=== PATIENT | male | born 1930 | race Hispanic/Latino ===

== ENCOUNTER 2020-01-20 09:57 | Inpatient (IN) | payer MEDICARE, OTHER ==
[~2020-01-20] VITALS: Ht 167.6 cm; Wt 41.4 kg
--- NOTE | 2020-01-20 11:30 | Emergency Department Note ---
History of Present Illnes History of Present Illness Chief Complaint: General Medicine Complaints History of Present Illness This is a 89 year old male arrives [facility] the ED [facility] due to hypoxia. Patient given limited history admits to cough and states he feels weak. Chief Complaint Comment MED RESORT CALLED RESPIRATORY DISTRSS. SATS ON NRB AT 6 LPM AT [facility] WITH SATS 80'S. PT AWAKE AND UPRIGHT END TITLE 34. SATS NOW 89% ON NRB AT 15 LPM. NEGATIVE COVID ON JANUARY 07 AT [facility]. PT DANISH ONLY. FINGERS NOTED CYANOTIC AT TRIAGE TIME. FEET RED/FLUSHED. Historian: Patient, Operations Research Scientist/EMS Arrival Mode: [facility] Treatment PURCHASER AUTOMOTIVE PARTS: IV, O2, See EMS Report Additional Treatment PURCHASER AUTOMOTIVE PARTS: MED RESORT/20G RAC Content Editor Required: No Onset (how long ago): hour(s) Radiation: Reports non-radiation Severity: mild Onset quality: unable to specify Timing of current episode: unable to specify Progression: unable to specify Past Medical/Family History Physician Review I have reviewed the patient's past medical and family history. Any updates have been documented here. Past Medical History Recent Fever: No Clinical Suspicion of Infectio: No New/Unexplained Change in Ment: No Past Medical History: Hypertension, [place], Hypothyroidism, CAD, Other Mental Illness, Hyperlipedemia Other Medical History: PARKINSON'S DISEASE DEMENTIA Review of Systems ROS Narrative Unable to obtain ROS: altered mental status Review of Systems Constitutional: Reports as per HPI EENTM: Reports no symptoms Cardiovascular: Reports no symptoms Respiratory: Reports as per HPI, Reports cough Gastrointestinal: Reports no symptoms Genitourinary: Reports no symptoms Musculoskeletal: Reports no symptoms Integumentary: Reports no symptoms Neurological: Reports no symptoms Psychological: Reports no symptoms Endocrine: Reports no symptoms Hematological/Lymphatic: Reports no symptoms Physical Exam Related Data Allergies: Coded Allergies: No Known Allergies (Unverified , 01/20/20) Triage Vital Signs Vital Signs Date Time Temp Pulse Resp B/P (MAP) Pulse Ox O2 Delivery O2 Flow Rate FiO2 01/20/20 09:58 98.0 74 22 74/50 89 Vital signs reviewed: Yes Physical Exam CONSTITUTIONAL Constitutional: Present well-developed, Present cachectic, Present ill appearing HENT HENT: Present normocephalic, Present atraumatic, Present mucosae dry, Present nose normal HENT L/R: Present left ext ear normal, Present right ext ear normal EYES Eyes: Reports PERRL, Reports conjunctivae normal NECK Neck: Present ROM normal PULMONARY Pulmonary: Present effort normal, Present respiratory distress CARDIOVASCULAR Cardiovascular: Present regular rhythm, Present heart sounds normal, Present capillary refill normal, Present normal rate GASTROINTESTINAL Abdominal: Present soft, Present nontender, Present bowel sounds normal GENITOURINARY Genitourinary: Present exam deferred SKIN Skin: Present warm, Present dry MUSCULOSKELETAL Musculoskeletal: Present ROM normal NEUROLOGICAL Neurological: Present no gross motor or sensory deficits PSYCHOLOGICAL Psychological: Absent mood/affect normal, Absent judgement normal Results Laboratory Lab results reviewed: Yes Imaging Imaging results reviewed: Yes Procedures 12 Lead ECG Interpretation ECG Interpretation : ECG: ECG 1 Prior ECG tracings: reviewed Rhythm: sinus rhythm Rate: normal QRS axis: right ST segments normal: Yes T wave inversion: V3, V4, V5, V6 Clinical Impression: abnormal ECG Critical Care Time Total Critical Care Time (min): 40 Critcal care necessary due to: metabolic failure Comments Patient with marked electrolyte abnormalities, elevated cardiac markers, concerns or multiorgan dysfunction secondary to severe dehydration and possible acute coronary syndrome Assessment & Plan Medical Decision Making MDM 89-year-old ill-appearing related to the ED after being hypoxic at the [facility]. Patient's oxygen saturation 89% in the ED, there was concerns of possible [place] 19 related illness. Patient's labwork concerning for marked hypernatremia, elevated troponin, the preceding her likely due to severe dehydration versus any infectious process. There is no concerns for any infectious process at time of admission. Patient had no leukocytosis. Patient had no fever, the initial blood pressure on arrival was slightly low due to a volume depletion not related to an infectious source. Patient was given volume resuscitation, blood pressure improved, slow reversal of hypernatremia is necessary given this is likely a chronic condition for the patient. Case discussed with hospitalist accepted admission, further consultation to be done by primary hospitalist team. Assessment & Plan Final Impression: (1) NSTEMI (non-ST elevated myocardial infarction) (2) Hypernatremia Depart Disposition: HOME, SELF-CARE Last Vital Signs Date Time Temp Pulse Resp B/P (MAP) Pulse Ox O2 Delivery O2 Flow Rate FiO2 01/20/20 09:58 98.0 74 22 74/50 89 Home Meds Reported Medications Mirtazapine (MIRTAZAPINE) 15 Mg Tab, 15 MG PO HS, TAB 01/20/20 Midodrine Hcl (MIDODRINE HCL) 5 Mg Tablet, 5 MG PO Q8H PRN for LOW BLOOD PRESSURE, TAB 01/20/20 Metoprolol Tartrate (METOPROLOL TARTRATE) 25 Mg Tablet, 12.5 MG PO BID, TAB 01/20/20 Levothyroxine Sodium (LEVOTHYROXINE SODIUM) 50 Mcg Tablet, 50 MCG PO DAILY, #30 TAB 01/20/20 Ipratropium/Albuterol Sulfate (COMBIVENT RESPIMAT INHAL SPRAY) 4 Gm Aer.w.adap, 4 GM IH Q4HR PRN for SHORTNESS OF BREATH, INH 01/20/20 Fenofibrate Nanocrystallized (FENOFIBRATE) 145 Mg Tablet, DAILY 01/20/20 Donepezil Hcl (ARICEPT) 5 Mg Tablet, 10 MG PO HS, #60 TAB 01/20/20 Divalproex Sodium (DEPAKOTE SPRINKLE) 125 Mg Cap.sprink, BID 01/20/20 Carbidopa/Levodopa (CARBIDOPA-LEVODOPA 10-100 TAB) 1 Each Tablet, 1 EACH PO BID, TAB 01/20/20 Atorvastatin Calcium (ATORVASTATIN CALCIUM) 10 Mg Tablet, 10 MG PO 2100, #30 TAB 01/20/20 Aspirin (ASPIR 81) 81 Mg Tablet., DAILY 01/20/20 EZRA AARON, DO Jan 20, 2020 11:30
[2020-01-20 11:31] LABS: BASOPHILS % 0.2 % (0.0-1.0); EOSINOPHILS % 0.2 % (0.0-6.0); HEMOGLOBIN 14.8 g/dL (14.0-18.0); LYMPHOCYTES # (AUTO) 1.2 (1.0-3.2); LYMPHOCYTES % 22.4 % (18.0-39.1); MEAN CORPUSCULAR HEMOGLOBIN 28.9 pg (28-32); MEAN CORPUSCULAR HGB CONC 30.2 g/dL (31-35); MEAN CORPUSCULAR VOLUME 95.7 fL (81-99); MONOCYTES # (AUTO) 0.4 (0.2-0.8); MONOCYTES % 7.5 % (4.4-11.3); NEUTROPHILS # (AUTO) 3.6 (2.1-6.9); NEUTROPHILS % 69.3 % (38.7-80.0); PLATELET COUNT 169 x10e3/uL (140-360); RED BLOOD COUNT 5.12 x10e6/uL (4.3-5.7); RED CELL DISTRIBUTION WIDTH 13.5 % (11.7-14.4)
[2020-01-20 11:52] LABS: CREATINE KINASE MB 14.9 ng/mL (0-5.0)
[2020-01-20 11:53] LABS: ALBUMIN 3.6 g/dL (3.5-5.0); ALBUMIN/GLOBULIN RATIO 0.8 (0.8-2.0); ANION GAP 16.9 mmol/L (8-16); CREATININE, SERUM 3.6 mg/dL (0.72-1.25); POTASSIUM 3.9 mmol/L (3.5-5.1)
--- NOTE | 2020-01-20 12:00 | NUR ---
PATIENT NRB REMOVED. PULSE OX PLACED ON EAR. O2 SAT 100%
--- NOTE | 2020-01-20 12:58 | Diagnostic Imaging Report ---
EXAMINATION: CHEST SINGLE (PORTABLE) INDICATION: ^Y ^COVID PUI. COMPARISON: None FINDINGS: AP view TUBES and LINES: None. LUNGS: Right gastric sulcus is excluded from the image. Lungs are well inflated. There is no evidence of pneumonia or pulmonary edema. PLEURA: No pleural effusion or pneumothorax. HEART AND MEDIASTINUM: The cardiomediastinal silhouette is unremarkable. BONES AND SOFT TISSUES: No acute osseous lesion. Soft tissues are unremarkable. UPPER ABDOMEN: No free air under the diaphragm. IMPRESSION: No acute thoracic abnormality. Signed by: Maxi Swan MD on 01/20/2020 12:55 PM
[2020-01-20] MEDS ORDERED: SODIUM CHLORIDE 0.9% 1000ML 1,000 ML IV STA (14:37)
[2020-01-20] MEDS ORDERED: SODIUM CHLORIDE 0.9% 1000ML 1,000 ML ONE (14:47)
--- NOTE | 2020-01-20 15:00 | NUR ---
QUILT MAKER AT BEDSIDE FOR REPEAT TROP
--- NOTE | 2020-01-20 15:42 | NUR ---
DR. AARON AWARE OF TROP 2ND RESULT. WENT FROM 2.65 TO 2.29 NO FURTHER TREATMENT AT THIS TIME
[2020-01-20] MEDS ORDERED: SODIUM CHLORIDE 0.45% 1,000 ML IV ONE (18:00)
[2020-01-20] MEDS ORDERED: HYDRALAZINE HCL 20 MG/ML VIAL IV PRN (18:15)
[2020-01-20] MEDS ORDERED: ACETAMINOPHEN 325 MG TAB PO PRN (18:15)
[2020-01-20] MEDS ORDERED: ONDANSETRON HCL INJ 2MG/ML 2ML 2 MG/ML VIAL IV PRN (18:15)
--- NOTE | 2020-01-20 18:16 | NUR ---
Patient's daughter Rubi Hernandez [phone]
[2020-01-20 20:00] VITALS: BP 128/70
[2020-01-20 21:00] VITALS: BP 128/70
[2020-01-20] MEDS ORDERED: MIRTAZAPINE15 MG PO (22:08)
[2020-01-20] MEDS ORDERED: MIDODRINE HCL5 MG PO (22:08)
[2020-01-20] MEDS ORDERED: DEPAKOTE SPRIN125 MG (22:08)
[2020-01-20] MEDS ORDERED: LEVOTHYROXINE50 MCG PO (22:08)
[2020-01-20] MEDS ORDERED: COMBIVENT RESPIM4 GM IH (22:08)
[2020-01-20] MEDS ORDERED: FENOFIBRATE145 MG (22:08)
[2020-01-20] MEDS ORDERED: ATORVASTATIN CA10 MG PO (22:08)
[2020-01-20] MEDS ORDERED: ASPIR 8181 MG (22:08)
[2020-01-20] MEDS ORDERED: ARICEPT5 MG PO (22:08)
[2020-01-20] MEDS ORDERED: METOPROLOL TART25 MG PO (22:08)
[2020-01-20] MEDS ORDERED: CARBIDOPA-LEVO1 EACH PO (22:08)
[2020-01-20] MEDS ORDERED: DIVALPROEX SODIUM 125 MG TABDR...ER PO SCH (22:44)
[2020-01-20] MEDS: MIRTAZAPINE 15 MG TAB PO SCH (23:00)
[2020-01-20] MEDS: FAMOTIDINE 20 MG/2 ML VIAL IV SCH (23:00)
[2020-01-20] MEDS: DONEPEZIL HCL 5 MG TAB PO SCH (23:00)
[2020-01-21] VITALS (8 sets, daily range): BP systolic 97–131; BP diastolic 62–70
[2020-01-21 00:39] LABS: ALBUMIN 3.5 g/dL (3.5-5.0); ALBUMIN/GLOBULIN RATIO 0.9 (0.8-2.0); ANION GAP 15.9 mmol/L (8-16); CALCIUM 9.3 mg/dL (8.4-10.2); CREATININE, SERUM 3.06 mg/dL (0.72-1.25); POTASSIUM 3.9 mmol/L (3.5-5.1)
[2020-01-21] MEDS ORDERED: DEXTROSE 5% 1,000 ML IV SCH (01:00)
[2020-01-21 06:48] LABS: EOSINOPHILS % 0.2 % (0.0-6.0); HEMATOCRIT 45.1 % (38.2-49.6); HEMOGLOBIN 13.4 g/dL (14.0-18.0); LYMPHOCYTES # (AUTO) 0.9 (1.0-3.2); LYMPHOCYTES % 16.9 % (18.0-39.1); MEAN CORPUSCULAR HEMOGLOBIN 28.9 pg (28-32); MEAN CORPUSCULAR HGB CONC 29.7 g/dL (31-35); MEAN CORPUSCULAR VOLUME 97.4 fL (81-99); MONOCYTES # (AUTO) 0.3 (0.2-0.8); MONOCYTES % 5.8 % (4.4-11.3); NEUTROPHILS # (AUTO) 4.3 (2.1-6.9); NEUTROPHILS % 76.6 % (38.7-80.0); PLATELET COUNT 166 x10e3/uL (140-360); RED BLOOD COUNT 4.63 x10e6/uL (4.3-5.7); RED CELL DISTRIBUTION WIDTH 13.6 % (11.7-14.4)
[2020-01-21 07:26] LABS: ANION GAP 16.7 mmol/L (8-16); CALCIUM 8.9 mg/dL (8.4-10.2); CREATININE, SERUM 2.79 mg/dL (0.72-1.25); POTASSIUM 3.7 mmol/L (3.5-5.1)
[2020-01-21] MEDS: FAMOTIDINE 20 MG/2 ML VIAL IV SCH ×2 (08:55→20:58)
[2020-01-21] MEDS: DONEPEZIL HCL 5 MG TAB PO SCH ×2 (09:00→21:57)
[2020-01-21] MEDS: DIVALPROEX SODIUM 125 MG TABDR...ER PO SCH ×3 (09:00→21:30)
[2020-01-21] MEDS: FENOFIBRATE 145 MG TAB PO SCH (09:00)
[2020-01-21] MEDS: METOPROLOL TARTRATE 25 MG TAB PO SCH ×2 (09:00→16:48)
[2020-01-21] MEDS: LEVOTHYROXINE SODIUM 50 MCG TAB PO SCH (09:00)
[2020-01-21] MEDS: CARBIDOPA/LEVODOPA 10/100 TAB PO SCH ×2 (10:30→16:48)
--- NOTE | 2020-01-21 10:50 | Diagnostic Imaging Report ---
EXAM: CT Chest WITHOUT intravenous contrast 01/21/2020 10:00 AM INDICATION: Hypoxia COMPARISON: Chest radiograph 01/20/2020 TECHNIQUE: Chest was scanned utilizing a multidetector helical scanner from the lung apex through the level of the adrenal glands without administration of IV contrast. Coronal and sagittal reformations were obtained. Routine protocol was performed. IV CONTRAST: None RADIATION DOSE: Total DLP: 348 mGy*cm. Dose modulation, iterative reconstruction, and/or weight based adjustment of the mA/kV was utilized to reduce the radiation dose to as low as reasonably achievable. COMPLICATIONS: None FINDINGS: LINES/ TUBES: None. LUNGS AND AIRWAYS: The central airways are patent. 6 mm right upper lobe part solid part groundglass nodules. 6 mm left lower lobe part solid part groundglass nodule. No focal consolidation. No pulmonary edema. PLEURA: The pleural spaces are clear. HEART AND MEDIASTINUM: The thyroid gland is normal. No supraclavicular, axillary, mediastinal, or hilar lymphadenopathy. The heart is not enlarged. No pericardial effusion. Scattered atherosclerotic calcifications involve the aorta, coronary arteries, and proximal great vessels. The ascending aorta is ectatic, measuring up to 4.1 cm. UPPER ABDOMEN: Partially calcified splenic artery aneurysm. No acute findings in the upper abdomen. BONES: T11 compression fracture has a sclerotic appearance and is likely chronic. SOFT TISSUES: Unremarkable. IMPRESSION: No focal pneumonia or pulmonary edema. 6 mm part solid part groundglass nodules in the right upper and left lower lobes. Recommend follow-up chest CT in 12 months to assess for stability. Ectatic ascending thoracic aorta. Signed by: Bozena Bustillo MD on 01/21/2020 10:46 AM
[2020-01-21] MEDS: DEXTROSE 5% 1,000 ML IV SCH ×2 (10:59→16:58)
[2020-01-21] MEDS: MIDODRINE HCL 5 MG TABLET PO SCH ×2 (12:00→16:00)
--- NOTE | 2020-01-21 20:05 | NUR ---
O2 APPLIED VIA NC
--- NOTE | 2020-01-21 20:28 | NUR ---
IV TO L FA D/C CATHETER TIP INTACT. NEW IV TO L AC 20G STARTED. CDI DRESSING APPLIED. TOLERATED WELL.
[2020-01-21] MEDS: MIRTAZAPINE 15 MG TAB PO SCH (20:58)
[2020-01-21] MEDS: ATORVASTATIN 10 MG TAB PO SCH (20:58)
[2020-01-21] MEDS ORDERED: MIRTAZAPINE 15 MG TAB PO SCH (21:00)
[2020-01-21] MEDS ORDERED: DONEPEZIL HCL 5 MG TAB PO SCH (21:00)
--- NOTE | 2020-01-21 21:10 | NUR ---
SPOKE TO MD BHAT. NEW ORDERS RECEIVED.
--- NOTE | 2020-01-21 21:19 | NUR ---
SPOKE TO MD Aidee IGLESIAS REGARDING CONSULT. AWARE O2 SAT 76% AND 3L NC. NO NEW ORDERS RECEIVED.
[2020-01-21 22:11] LABS: ABG HCO3 27 mmol/L (22-26); ABG PCO2 41 mmHg (35-45); ABG PH 7.42 (7.35-7.45); ABG PO2 208 mmHg (80-105)
--- NOTE | 2020-01-21 22:30 | NUR ---
ALT PRESSURE MACHINE APPLIED
--- NOTE | 2020-01-21 22:44 | Consultation ---
DATE OF CONSULTATION: Pulmonary and Critical Care Consultation CHIEF COMPLAINT: Confusion, hyponatremia, and decreasing oxygen saturation. HISTORY OF PRESENT ILLNESS: The patient is an 89-year-old man. He has a history of Parkinson disease as well as hypothyroidism and prior cardiac disease. He came to the hospital with worsening confusion and obtundation. He was found to have a sodium of 172. He also had an elevated creatinine of 3.06. He has been started on hydration and is receiving some free water. This evening, he had some decrease in his oxygen saturations and had to be placed on nasal cannula. He does not report any fevers. There is no chest pain. He denies any cough. PAST SURGICAL HISTORY: Status post fracture of the femur and acetabulum that required operative repair. PAST MEDICAL HISTORY: 1. Coronary artery disease with prior myocardial infarction. 2. Parkinson disease. 3. Hypothyroidism. 4. Hypertension. SOCIAL HISTORY: The patient stays at a nursing facility. He is not an active smoker or drinker. FAMILY HISTORY: Family history is noncontributory. ALLERGIES: NO KNOWN DRUG ALLERGIES. REVIEW OF SYSTEMS: There is no history of fever. He has no headache. There is confusion. He has no neck pain. He has no chest pain. He did have some low oxygen saturations, but does not complain of dyspnea or cough. He has no abdominal pain. There is no nausea or vomiting. PHYSICAL EXAMINATION: VITAL SIGNS: The blood pressure is 119/62, saturation is now 92% on nasal cannula. His pulse is 55-60. His respiratory rate is 16. HEENT: Shows no facial swelling or erythema. CARDIAC: Reveals irregular rhythm with a normal S1 and S2. LUNGS: Auscultation of lungs reveals decreased breath sounds at the bases. There is no wheezing. ABDOMEN: Soft, nontender. There is no rebound or guarding. EXTREMITIES: Shows no leg edema or calf tenderness. There is no cyanosis or clubbing. SKIN: Shows no rashes. NEUROLOGICAL: Shows confusion. LABORATORY DATA: BUN to creatinine ratio is 119 to 2.79 with a sodium of 171. The carbon dioxide is 26 and the chloride is 132. White blood cell count is 5.5 and hemoglobin is 13.4. Platelet count is 166. RADIOGRAPHIC DATA: CT scan of the chest shows some partially solid nodules in the right upper and left lower lobes. Echocardiogram shows a decreased ejection fraction with an estimated EF of 30-35%. There is some concentric left ventricular hypertrophy. IMPRESSION: 1. Metabolic encephalopathy. 2. Hypernatremia. 3. Acute renal failure. 4. Chronic systolic congestive heart failure. 5. Parkinson disease. 6. Hypothyroidism. 7. Hypertension. PLAN: 1. Continue gentle hydration with increase of free water. 2. Monitor sodium and creatinine. 3. Repeat chest x-ray tomorrow. 4. Continue oxygen. 5. Continue anti-parkinsonian regimen. 6. Poor prognosis. Kelvin Green MD Erica/MODL /[id number]
[2020-01-22] VITALS (7 sets, daily range): BP systolic 103–137; BP diastolic 54–81
--- NOTE | 2020-01-22 00:08 | NUR ---
LAB CALLED ABOUT SODIUM RESULTS 163, WILL INFORM PRIMARY NURSE, RESULTS ARE DECREASING FROM PREVIOUS RESULTS.
--- NOTE | 2020-01-22 00:17 | NUR ---
SPOKE TO MD CORREA REGARDING SODIUM LEVEL. NEW ORDERS RECEIVED.
--- NOTE | 2020-01-22 00:40 | Consultation ---
DATE OF CONSULTATION: 01/21/2020 Nephrology Consultation Note REASON FOR CONSULTATION: Hypernatremia, acute kidney injury, dehydration. HISTORY OF PRESENT ILLNESS: An 89-year-old male with baseline dementia from a correction, came in to the ED after found to be obtunded and confused and found to have a sodium level of 172 and elevated creatinine level. The patient was admitted for further evaluation and management. Nephrology was consulted for management of acute kidney injury, dehydration, and hypernatremia. During my evaluation, the patient is at baseline, nonverbal. Information being obtained from the nursing note and the records and the chart. REVIEW OF SYSTEMS: Unable to obtain. ALLERGIES: NO KNOWN DRUG ALLERGIES. MEDICATIONS: Aspirin, Combivent, midodrine, Depakote, Lipitor, levodopa/carbidopa, Aricept, fenofibrate, levothyroxine, metoprolol, mirtazapine. PAST MEDICAL HISTORY: Hyperlipidemia, Parkinson disease, hypothyroidism, hypertension. PAST SURGICAL HISTORY: Unable to obtain. PAST FAMILY HISTORY: Unable to obtain. SOCIAL HISTORY: We do know he lives in a correction. I am not able to obtain any other information. PHYSICAL EXAMINATION: VITAL SIGNS: Temperature is 96.8, pulse is 72, respiratory rate is 19, blood pressure 107/70, he is 95% on room air. GENERAL: He is clinically dehydrated. He is obtunded. He seems to be at his baseline. PULMONARY: Clear to auscultation bilaterally. No wheezing, rales, or rhonchi. No crackles appreciated. CARDIOVASCULAR: Positive S1 and S2. No murmurs, rubs, or gallops appreciated. ABDOMEN: Soft, nondistended, nontender to palpation. Bowel sounds present. MUSCULOSKELETAL: Unable to assess due to his baseline. NEUROLOGICAL: Unable to assess due to his baseline. SKIN: Intact, warm to touch. Good cap refill. PSYCHIATRIC: Currently at baseline dementia. EXTREMITIES: No edema appreciated. LABORATORY DATA: Show white count is 5.5, hemoglobin 13, hematocrit is 45, and platelets of 166. Chemistry; sodium on admission 172, now 171; potassium 3.7; chloride 132; bicarb 26; anion gap of 16; BUN is 119; creatinine is 2.79; glucose 156; hemoglobin A1c 5.6; calcium 8.9. LFTs within normal range. Albumin was 3.5. TSH is 0.357. Coronavirus nondetected. Blood cultures, no growth to date. IMAGING STUDIES: Chest x-ray, no acute cardiothoracic abnormality. CT of the chest with no focal pneumonia, pulmonary edema. 6 mm solid part ground-glass nodule in the right upper and lower lobes, new repeat CT as an outpatient. IMPRESSION: 1. Hypovolemic hypertonic hypernatremia. 2. Acute kidney injury secondary to dehydration. 3. Uremia. 4. Clinical dehydration. PLAN: At this time from a renal standpoint, the patient is currently on D5W at 125 mL/h. Repeat sodium level approximately 1420 this afternoon was 171. I ordered another stat sodium level now. Repeat chemistry in the morning. If the sodium level is still high, I will increase the D5W. Monitor the patient very closely. Discussed plan of care with nursing staff and primary attending. A stat sodium level is pending now and they will call me with the results. MD ERIC Dugan/[place] /[id number]
[2020-01-22 05:30] LABS: EOSINOPHILS % 0.4 % (0.0-6.0); HEMATOCRIT 44.2 % (38.2-49.6); HEMOGLOBIN 13.2 g/dL (14.0-18.0); LYMPHOCYTES # (AUTO) 0.8 (1.0-3.2); MEAN CORPUSCULAR HEMOGLOBIN 28.4 pg (28-32); MEAN CORPUSCULAR HGB CONC 29.9 g/dL (31-35); MEAN CORPUSCULAR VOLUME 95.1 fL (81-99); MONOCYTES # (AUTO) 0.3 (0.2-0.8); MONOCYTES % 5.5 % (4.4-11.3); NEUTROPHILS # (AUTO) 4.4 (2.1-6.9); NEUTROPHILS % 79.6 % (38.7-80.0); PLATELET COUNT 121 x10e3/uL (140-360); RED BLOOD COUNT 4.65 x10e6/uL (4.3-5.7); RED CELL DISTRIBUTION WIDTH 13.4 % (11.7-14.4)
[2020-01-22] MEDS: LEVOTHYROXINE SODIUM 50 MCG TAB PO SCH (06:00)
[2020-01-22 06:04] LABS: ALBUMIN 3.2 g/dL (3.5-5.0); ALBUMIN/GLOBULIN RATIO 0.8 (0.8-2.0); ANION GAP 13.3 mmol/L (8-16); CALCIUM 8.9 mg/dL (8.4-10.2); CREATININE, SERUM 2.01 mg/dL (0.72-1.25); MAGNESIUM 3.1 MG/DL (1.3-2.1); POTASSIUM 3.3 mmol/L (3.5-5.1)
--- NOTE | 2020-01-22 06:11 | NUR ---
SPOKE TO MD CORREA REGARDING SODIUM LEVEL Addendum: 01/22/20 at 0616 by Dari Perez RN PLEASE INCLUDE SODIUM LEVEL 165. NEW ORDERS RECEIVED.
[2020-01-22] MEDS: DEXTROSE 5% 1,000 ML IV SCH (06:25)
--- NOTE | 2020-01-22 07:07 | NUR ---
REPORT GIVEN TO DAYSHIFT NURSE. NO ADVERSE SIGNS OR SYMPTOMS. RESTING IN BED. NO SIGNS OF IV INFILTRATION. BED LOCKED AND IN LOW POSITION. CALL LIGHT WITHIN REACH. BED ALARM ACTIVATED.
--- NOTE | 2020-01-22 07:15 | NUR ---
PT IN BED RESTING NO DISTRESS NOTED,APHASIC,RESPONDS TO STIMULI
--- NOTE | 2020-01-22 07:49 | Diagnostic Imaging Report ---
Examination: Single AP view of the chest. COMPARISON: Portable chest 01/20/2020, CT chest 01/21/2020 INDICATION: Shortness of breath, CHF IMPRESSION: 1. Lines and Tubes: None 2. Lungs are grossly clear. No consolidation or effusion. 3. Mild prominence of the cardiac silhouette, likely due to portable AP projection. Pulmonary vasculature is normal. 4. No acute bony abnormalities. Signed by: Dr. Romeo Rutherford M.D. on 01/22/2020 7:46 AM
[2020-01-22] MEDS: MIDODRINE HCL 5 MG TABLET PO SCH ×3 (08:00→16:00)
--- NOTE | 2020-01-22 08:30 | NUR ---
PT REFUSES TO EAT OR TAKE MEDICATION INFORM FOREST STEVENSON NP
[2020-01-22] MEDS: METOPROLOL TARTRATE 25 MG TAB PO SCH ×2 (09:00→17:00)
[2020-01-22] MEDS: CARBIDOPA/LEVODOPA 10/100 TAB PO SCH ×2 (09:00→17:00)
[2020-01-22] MEDS: DIVALPROEX SODIUM 125 MG TABDR...ER PO SCH ×2 (09:00→20:56)
[2020-01-22] MEDS: FENOFIBRATE 145 MG TAB PO SCH (09:00)
[2020-01-22] MEDS: FAMOTIDINE 20 MG/2 ML VIAL IV SCH ×2 (09:35→22:00)
--- NOTE | 2020-01-22 12:00 | NUR ---
PT IN BED RESTING REFUSES MEDICATION OR EATING,INFORMED DR CORREA
[2020-01-22] MEDS ORDERED: SODIUM CHLORIDE 0.9% 1000ML 1,000 ML IV SCH (13:45)
[2020-01-22] MEDS ORDERED: POTASSIUM CHLORIDE 20MEQ/100ML 200 ML IV ONE (14:30)
--- NOTE | 2020-01-22 16:02 | NUR ---
Nutrition Intervention Note RD Recommendation(s) for Physician: - Continue current diet per STAFF NURSE ANESTHETIST/MD - Recommend Ensure pudding with meals TID - Recommend MVI once daily for adequacy - Consider an appetite stimulant Pt meets criteria for severe protein calorie malnutrition Plan of Care: RD following, monitoring for tolerance and adequacy Nutrition reason for involvement: Nutrition Risk Trigger RD Assessment 01/21: 89 YOM admitted for NSTEMI, seen today per MST screen. Pt reports poor appetite and wt loss, however pt can not recall UBW or how long he has had a poor appetite- noted pt with hx of dementia. Pt appears malnourished. Pt with poor intake since admit. Pt denies GI distress. Chart reviewed. Labs and meds reviewed. Rec's provided. Will continue to monitor. Principal Problems/Diagnoses: hypernatremia, NSTEMI, YARITZA PMH: dementia, hyperlipidemia, Parkinson's, hypothyroidism, HTN GI: LBM 01/21 Skin: intact Labs: 01/21: Na 165, K 3.3, BUN 101, Cr 2.01, Gluc 124, Ca 8.9, Phos 2.6, Mg 3.1 Meds: pepcid, lipitor, remeron, synthroid, tricor, sinemet, zofran Ht: 66 in Wt: 91.25 lb BMI: 14.7 kg/m2 IBW: 148 lb Malnutrition Evaluation (01/22/20) The patient meets criteria for unspecified SEVERE protein-calorie malnutrition. Energy intake: Pt reports poor appetite- can not recall time frame or intake Weight loss: Pt reports wt loss- can not recall UBW Fat loss: Severe, eyes hollow Muscle loss: Severe, shoulder square, Supporting Evidence: Fluid accumulation: none Functional Status: unable to evaluate Nutrition Prescription (Diet Order): Cardiac Estimated Nutritional Needs: 3632-4007 calories/day (30-35 kcal/kg CBW) 62-83 g protein/day (1.5-2 g pro/kg CBW) Diet Adequacy: Not meeting calorie needs, Not meeting protein needs Diet Tolerance: tolerating po Diet Education Needs Assessment: Diet education not indicated at this time. Nutrition Care Level: high (per clinical judgement) Nutrition Diagnosis: Inadequate energy and inadequate protein intake related to chronic medical conditions as evidenced by not meeting needs and underweight with BMI of 14.7. Goal: Patient will meet 75-100% of estimated needs by follow up Progress: N/A Interventions: -Fat, mineral, texture modified diet, Commercial food, Prescription medications, Recommended Modifications, Multivitamin/mineral supplement therapy Monitoring/Evaluation: -Total energy intake, Total protein intake, Formula/Solution, Modified diet, Commercial food, Weight change Signed: Maggy Paige RD, LD, [facility]
--- NOTE | 2020-01-22 17:42 | NUR ---
PT AWAKE ATTEMPTING TO GET OUT OF BED ,ABLE TO SPEAK BUT CANT UNDERSTAND HIM,DENIES PAIN
[2020-01-22] MEDS: ENOXAPARIN 30 MG/0.3 ML SYR SC SCH (19:00)
--- NOTE | 2020-01-22 19:38 | Progress Note ---
DATE: SUBJECTIVE: The patient has continued to receive volume in free water. The sodium is improving and creatinine is improving. The patient still has some confusion. PHYSICAL EXAMINATION: VITAL SIGNS: The blood pressure is 135/81, saturation is 97%. HEENT: Shows no facial swelling or erythema. CARDIAC: Reveals regular rate and rhythm with normal S1 and S2. LUNGS: Auscultation of lungs shows decreased breath sounds at the bases. There is no wheezing. ABDOMEN: Soft, nontender. There is no rebound or guarding. EXTREMITIES: Shows no leg edema or calf tenderness. There is no cyanosis or clubbing. LABORATORY DATA: Sodium is 159 and the BUN to creatinine ratio is 101 to 2.01. Potassium is 3.3. White blood cell count is 5.5 and hemoglobin is 13.2. The platelet count is 121. RADIOGRAPHIC DATA: Chest x-ray shows no acute abnormalities. IMPRESSION: 1. Metabolic encephalopathy. 2. Hypernatremia. 3. Acute renal failure. 4. Chronic systolic congestive heart failure. 5. Parkinson disease. 6. Hypertension. 7. Pulmonary nodules. PLAN: 1. Continue hydration with free water. Follow creatinine and sodium. 2. Physical therapy. 3. Continue anti-parkinsonian regimen. 4. The patient will need repeat CT scan in 3 to 6 months as an outpatient to follow up pulmonary nodules. Kelvin Green MD [facility]/JHONNYL /[id number]
[2020-01-22] MEDS: ATORVASTATIN 10 MG TAB PO SCH (20:56)
[2020-01-22] MEDS: MIRTAZAPINE 15 MG TAB PO SCH (20:56)
--- NOTE | 2020-01-22 23:10 | NUR ---
D/C IV TO R WRIST CATHETER TIP INTACT. START IV TO R AC 20G. SALINE FLUSH. CDI DRESSING APPLIED. TOLERATED PROCEDURE WELL.
--- NOTE | 2020-01-22 23:13 | NUR ---
SPOKE TO MD CORREA. NEW ORDERS TO DRAW SODIUM NOW.
[2020-01-23] VITALS: BP 142/66
--- NOTE | 2020-01-23 00:18 | NUR ---
SPOKE TO MD CORREA REGARDING SODIUM 161. NEW ORDERS RECEIVED.
[2020-01-23] MEDS ORDERED: DEXTROSE 5% 1,000 ML IV SCH (00:30)
--- NOTE | 2020-01-23 00:54 | Progress Note ---
DATE: 01/22/2020 Renal Progress Note SUBJECTIVE: The patient is at baseline. He is minimally responsive due to his baseline dementia. His sodium is improving appropriately. PHYSICAL EXAMINATION: VITAL SIGNS: Temperature is 98.1, pulse 60, respiratory rate is 18, blood pressure 103/54, and pulse ox 98% on room air. GENERAL: Not in acute distress. He is at baseline dementia. PULMONARY: Clear to auscultation bilaterally. No wheezing, no rales, no rhonchi, no crackles appreciated. CARDIOVASCULAR: Positive S1 and S2. No murmurs, rubs, or gallops appreciated. ABDOMEN: Soft, nondistended, and nontender to palpation. Bowel sounds present. MUSCULOSKELETAL: Unable to assess. He is at baseline. NEUROLOGIC: He is at baseline. SKIN: Intact. Warm to touch. Good cap refill. PSYCHIATRIC: Baseline dementia. EXTREMITIES: No edema. Good range of motion throughout. LABORATORY FINDINGS: Show white count 5.5, hemoglobin 13, hematocrit is 44, platelets of 121. Chemistry; sodium was 165 early this morning, now down trended to 159, potassium 3.3, chloride 128, bicarb 27, anion gap of 13, BUN is 101, creatinine is 2, glucose is 124, magnesium 3.1, phosphorus 2.6. Coronavirus was nondetected. Blood cultures shows gram-positive rods, likely to be contaminant. The other blood culture shows no growth to-date. IMAGING STUDIES: Chest x-ray this morning shows some mild prominence of the cardiac silhouette. Lungs are grossly clear. IMPRESSION: 1. Hypovolemic hypertonic hypernatremia. 2. Acute kidney injury secondary to dehydration. 3. Uremia. 4. Clinical dehydration. 5. Hypokalemia. PLAN: At this time, replace potassium IV. I had a repeat stat sodium level that was found to be 159. He is currently on normal saline, which I will now convert to D5W. There is a stat sodium level as ordered now. He will have a chemistry in the morning. We will repeat labs in the morning including phosphorus and magnesium. Discussed with nursing staff. MD ERIC Dugan/[place] /[id number]
--- NOTE | 2020-01-23 02:24 | Consultation ---
DATE OF CONSULTATION: Cardiology Consultation HISTORY OF PRESENT ILLNESS: The patient is seen, examined, and reviewed the chart. Most of the information obtained from the patient's chart and the nurse. The patient admitted this some nonspecific symptoms, but the patient has significant problem. The patient is known patient of coronary artery disease and old myocardial infarction, Parkinson disease, hypothyroidism, and hypertension. At this time, the patient came with the confusion. The patient had hypernatremia and the patient's renal function, estimated GFR 31 mL. EKG shows nonspecific ST-T changes and troponin is 2.2. At this time, he might be a troponin type 2, leak or could be non-Q wave myocardial infarction. The patient's ejection fraction is 30% to 35% with global hypokinesia noted. At this time, we will continue all the medications as ordered and I will continue follow the patient from cardiac point of view, and also there is a possibility of patient may become hospice patient at this time, but I have not talked to the family yet and the patient is about 89 years old. The patient is not able to converse much and the patient speaks predominantly [place], but at this time, no acute evidence of any congestive heart failure. IMPRESSION: 1. Metabolic encephalopathy. 2. History of old myocardial infarction, coronary artery disease. 3. Hypertension. 4. Hypernatremia. 5. Possible non-Q wave myocardial infarction and significant renal failure. The patient may be going to hospice care. We will continue present treatment. MD ALY Barcenas/JHONNYL /[id number]
[2020-01-23 04:00] VITALS: BP 103/63
[2020-01-23 05:39] LABS: EOSINOPHILS % 0.5 % (0.0-6.0); HEMATOCRIT 39.3 % (38.2-49.6); HEMOGLOBIN 12.5 g/dL (14.0-18.0); LYMPHOCYTES # (AUTO) 0.9 (1.0-3.2); LYMPHOCYTES % 20.7 % (18.0-39.1); MEAN CORPUSCULAR HEMOGLOBIN 31.2 pg (28-32); MEAN CORPUSCULAR HGB CONC 31.8 g/dL (31-35); MONOCYTES # (AUTO) 0.3 (0.2-0.8); MONOCYTES % 6.7 % (4.4-11.3); NEUTROPHILS # (AUTO) 3.1 (2.1-6.9); NEUTROPHILS % 71.4 % (38.7-80.0); PLATELET COUNT 95 x10e3/uL (140-360); RED BLOOD COUNT 4.01 x10e6/uL (4.3-5.7); RED CELL DISTRIBUTION WIDTH 13.7 % (11.7-14.4)
[2020-01-23] MEDS: LEVOTHYROXINE SODIUM 50 MCG TAB PO SCH (06:00)
[2020-01-23 06:02] LABS: ALBUMIN 3.1 g/dL (3.5-5.0); ALBUMIN/GLOBULIN RATIO 0.9 (0.8-2.0); ANION GAP 9.7 mmol/L (8-16); CALCIUM 8.8 mg/dL (8.4-10.2); CREATININE, SERUM 1.56 mg/dL (0.72-1.25); POTASSIUM 3.7 mmol/L (3.5-5.1)
--- NOTE | 2020-01-23 06:41 | NUR ---
SPOKE TO MD CORREA REGARDING SODIUM. NEW ORDERS RECEIVED.
--- NOTE | 2020-01-23 07:06 | NUR ---
REPORT GIVEN TO DAYSHIFT NURSE. RESTING IN BED. ALERT AND NO ADVERSE SIGNS OR SYMPTOMS. NO SIGNS IV INFILTRATION. BED LOCKED AND IN LOW POSITION. CALL LIGHT WITHIN REACH. BED ALARM ACTIVATED.
[2020-01-23 07:13] VITALS: BP 119/74
[2020-01-23 07:37] VITALS: BP 119/74
--- NOTE | 2020-01-23 07:38 | NUR ---
PT SLEEPING NO S/S DISCOMFORT.
[2020-01-23] MEDS: MIDODRINE HCL 5 MG TABLET PO SCH ×2 (08:00→12:00)
[2020-01-23] MEDS: FAMOTIDINE 20 MG/2 ML VIAL IV SCH (08:32)
[2020-01-23] MEDS: ENOXAPARIN 30 MG/0.3 ML SYR SC SCH (09:00)
[2020-01-23] MEDS: FENOFIBRATE 145 MG TAB PO SCH (09:00)
[2020-01-23] MEDS: CARBIDOPA/LEVODOPA 10/100 TAB PO SCH (09:00)
[2020-01-23 09:07] LABS: PLATELET MORPHOLOGY COMMENT FEW LARGE; RBC MORPHOLOGY COMMENT NORMAL
[2020-01-23 09:08] LABS: PLATELET ESTIMATE SLIGHTLY DECREASED
--- NOTE | 2020-01-23 11:16 | NUR ---
CALLED DAUGHTER AND SHE STATES SHE IS IN AGREEMENT TO GO BACK TO [facility], CALLED FACILITY AND GOT CHOICES GAVE CHOICE AND TRADITIONS WAS CHOSEN FILED IN CHART AND FAXED CLINICALS TO [facility]OTH [facility] AND [facility]. WAITING ON APPROVAL.
[2020-01-23] MEDS: METOPROLOL TARTRATE 25 MG TAB PO SCH (11:30)
[2020-01-23] MEDS: DIVALPROEX SODIUM 125 MG TABDR...ER PO SCH (11:30)
[2020-01-23] MEDS: DONEPEZIL HCL 5 MG TAB PO SCH (11:30)
[2020-01-23 11:39] VITALS: BP 113/80
--- NOTE | 2020-01-23 15:34 | NUR ---
PT ACCEPTED TO [facility]. [facility] NURSES STATION PHONE TO LET KNOW MICROFILM CLERK TIME.
[2020-01-23 15:38] VITALS: BP 124/75
--- NOTE | 2020-01-23 16:17 | NUR ---
USP FACILITY DISCHARGE INFORMATION PATIENT HAS BEEN ACCEPTED TO: NAME: [facility] ADDRESS: [address] [facility] ACCEPTING TOLL TEST WORKER:Felicity ELLIS MD: ZAYDA ROOM: 309 NURSE CALL REPORT TO: [phone] IMM SIGNED AND OBTAINED (if applicable): THE FOLLOWING DOCUMENTS MUST ACCOMPANY PATIENT FOR TRANSFER: COPIED CHART: PACKET
--- NOTE | 2020-01-24 00:32 | Progress Note ---
DATE: 01/23/2020 Nephrology Progress Note SUBJECTIVE: The patient is doing well at baseline. He was much more awake and alert. Family agreed to hospice services. His sodium was down trending appropriately. PHYSICAL EXAMINATION: VITAL SIGNS: Temperature is 98.9, pulse 68, respiratory rate 19, blood pressure was 124/75, and pulse ox 97% on room air. GENERAL: Not in acute distress. He was awake, alert, not oriented. PULMONARY: Clear to auscultation bilaterally. No wheezing, no rales, no rhonchi, no crackles appreciated. CARDIOVASCULAR: Positive S1 and S2. No murmurs, rubs, or gallops appreciated. ABDOMEN: Soft, nondistended, and nontender to palpation. Bowel sounds present. MUSCULOSKELETAL: Unable to assess. NEUROLOGIC: Unable to assess. SKIN: Intact. Warm to touch. Good cap refill. EXTREMITIES: No edema. Good range of motion throughout. LABORATORY FINDINGS: Show white count 4.3, hemoglobin 12, hematocrit is 39, platelets of 95. Chemistry; sodium 159, potassium 3.7, chloride 126, bicarb 26, anion gap of 9.7, BUN 66, creatinine 1.57, glucose is 131, calcium is 8.8, magnesium 2.9, AST 43, ALT 43, total bilirubin is 1.5, alkaline phosphatase 71. Coronavirus nondetected. MICROBIOLOGY: Noted. IMAGING STUDIES: None. IMPRESSION: 1. Hypovolemic, hypertonic hypernatremia. 2. Acute kidney injury secondary to dehydration. 3. Uremia. 4. Dehydration. 5. Hypokalemia. PLAN: At this time, sodium level was downtrending at 159. Continue with D5W. The patient will be discharged to hospice. At this time, since they have agreed to hospice, no further workup is needed. MD ERIC Dugan/MODL /[id number]
--- NOTE | 2020-01-24 10:53 | Discharge Summary ---
ADMISSION DIAGNOSES: Respiratory distress with hypoxia, present on admission; fluid overload; hypernatremia; acute kidney injury with chronic kidney disease stage 3; troponinemia; dementia; hypertension; hypothyroidism. DISCHARGE DIAGNOSES: Respiratory distress with hypoxia, present on admission; fluid overload; hypernatremia; acute kidney injury with chronic kidney disease stage 3; troponinemia; dementia; hypertension; hypothyroidism; chronic systolic congestive heart failure with fluid overload; type 2 myocardial infarction due to hypotension. HISTORY: Hyperlipidemia, hypothyroidism, depression, insomnia, [place], dementia, Parkinson disease, hypertension. HOSPITAL COURSE: An 89-year-old male admits from [facility] due to respiratory distress. According to the shelter, his SpO2 was in the 80s on 6 L nasal cannula. In the ER, the patient's SpO2 was 89% on non-rebreather 15 L. on admission assessment, he is 95% SpO2 or more on room air. On admission, BNP was 960. No signs of fluid overload were noted. EKG showed a sinus candis at the rate of 49. CT of the chest showed no pneumonia or edema, 6 mm solid part ground-glass nodule in the right upper lobe and left lower lobe. On admission, the patient's sodium level was 172, IV fluids were started and Nephrology was consulted. Coronavirus was negative. The patient's GFR on admission was 16 and trended up with IV fluids. Due to poor p.o. intake, placement of PEG tube was discussed with the family, but they are refusing. Echo showed an EF of 30%, which is chronic. Due to prolonged p.o. intake and failure to thrive, family is requesting hospice. The patient will discharge to [facility] with hospice. Family understands discharge instructions and agrees to plan. Vital signs stable, the patient is afebrile. Dictated by Ilana Rodriguez NP Esau Atkinson MD CHELLY/MODL /[id number]
== END 2020-01-23 18:20 | DRG 682 ==
LOC: ER 10:28 → ERHOLD 17:24 → MED/SURG 18:50
PROVIDERS: ADMIT Internal Medicine; ATTEND Internal Medicine
DX: N17.9 Acute kidney failure, unspecified (principal); I21.A1 Myocardial infarction type 2; G93.41 Metabolic encephalopathy; I50.22 Chronic systolic (congestive) heart failure; E87.0 Hyperosmolality and hypernatremia; Z68.1 Body mass index [BMI] 19.9 or less, adult; E78.5 Hyperlipidemia, unspecified; E03.9 Hypothyroidism, unspecified; I12.9 Hypertensive chronic kidney disease with stage 1 through stage 4 chronic kidney disease, or unspecified chronic kidney disease; E11.22 Type 2 diabetes mellitus with diabetic chronic kidney disease; N18.3 Chronic kidney disease, stage 3 (moderate); Z11.59 Encounter for screening for other viral diseases; G20 Parkinson's disease; I11.0 Hypertensive heart disease with heart failure; E86.0 Dehydration; E87.6 Hypokalemia; N18.9 Chronic kidney disease, unspecified; R06.03 Acute respiratory distress; R09.02 Hypoxemia; R62.7 Adult failure to thrive; F03.90 Unspecified dementia, unspecified severity, without behavioral disturbance, psychotic disturbance, mood disturbance, and anxiety; G47.00 Insomnia, unspecified; R91.8 Other nonspecific abnormal finding of lung field; I25.2 Old myocardial infarction
CPT/HCPCS: 36415; 36600; 71045; 71250; 80048; 80053; 82550; 82553; 82805; 83036; 83735; 83880; 84100; 84295; 84443; 84484; 85025; 87040; 87071; 87205; 87635; 93005; 93306; 97139; 99251; 99284; J1650; J3480; J7030; J7070